=== PATIENT | male | born 1985 | race Hispanic/Latino ===

== ENCOUNTER 2024-02-07 19:32 | Inpatient (IN) | payer OTHER ==
[~2024-02-07] VITALS: Ht 165.1 cm; Wt 58.0 kg
[2024-02-07 20:38] LABS: BASOPHILS # (AUTO) 0.03 K/uL (0.00-0.20); BASOPHILS % (AUTO) 0.2 % (0.0-5.0); HEMATOCRIT 46.1 % (42-54); IMMATURE GRANULOCYTE ABSOLUTE 0.06 K/uL (0-1); LYMPHOCYTES # (AUTO) 1.1 K/uL (1.0-4.8); LYMPHOCYTES % (AUTO) 7.7 % (21.0-51.0); MEAN CORPUSCULAR HEMOGLOBIN 30.1 pg (27.0-33.0); MEAN CORPUSCULAR HGB CONC 34.3 g/dL (32.0-36.0); MEAN CORPUSCULAR VOLUME 87.8 fL (79-99); MONOCYTES # (AUTO) 0.8 K/uL (0.1-1.0); MONOCYTES % (AUTO) 5.8 % (3.0-13.0); NEUTROPHILS # (AUTO) 12.2 K/uL (1.8-7.7); NEUTROPHILS % (AUTO) 85.9 % (40.0-77.0); PLATELET COUNT (AUTO) 384 K/uL (130-400); RED BLOOD CELL COUNT(AUTO) 5.25 MIL/uL (4.50-6.20); RED CELL DISTRIBUTION WIDTH 12.7 % (11.0-15.5); WHITE BLOOD COUNT (AUTO) 14.3 K/uL (4.8-10.8)
[2024-02-07 20:42] LABS: APPEARANCE,URINE CLEAR (CLEAR); BILIRUBIN,URINE NEGATIVE (NEGATIVE); COLOR,URINE YELLOW (YELLOW); GLUCOSE, URINE (UA) NEGATIVE (NEGATIVE); KETONES,URINE 40 mg/dL (NEGATIVE); LEUKOCYTE ESTERASE ,URINE NEGATIVE Leu/uL (NEGATIVE); NITRATE,URINE NEGATIVE (NEGATIVE); OCCULT BLOOD,URINE NEGATIVE (NEGATIVE); PH,URINE 8.5 (5.0-8.0); PROTEIN,URINE 200 mg/dL (NEGATIVE); UROBILINOGEN,URINE 0.2 mg/dL (0.2-1.0)
[2024-02-07 20:47] LABS: ADD UA MICROSCOPIC YES
[2024-02-07 20:54] LABS: CREATININE 0.9 mg/dL (0.5-1.3); POTASSIUM 4.1 mmol/L (3.5-5.1)
[2024-02-07 20:55] LABS: MUCUS,URINE Moderate LPF (None Seen)
[2024-02-07] MEDS: LACTATED RINGERS 1000ML 1,000 ML IV ONE (20:56)
[2024-02-07] MEDS: PANTOPRAZOLE 40 MG/VIAL IVP ONE (20:56)
[2024-02-07] MEDS: ONDANSETRON 4MG INJ IVP ONE (20:56)
[2024-02-07 20:57] LABS: BACTERIA,URINE Few /HPF (None Seen); HYALINE CASTS, URINE 0-1 /LPF (0-1 /LPF); RBC,URINE 0-1 /HPF (0-1); WBC,URINE 0-1 /HPF (0-1)
[2024-02-07 20:58] LABS: ALBUMIN 4.3 g/dL (3.5-5.0); TOTAL PROTEIN, SERUM 8.7 g/dL (6.0-8.3)
[2024-02-07] MEDS ORDERED: IOHEXOL 350 MG/ML 100ML INFUS..BTL IV ONE (21:15)
[2024-02-07] MEDS: ZOSYN 3.375GM +NS 50ML IV ONE (22:32)
[2024-02-07] MEDS: ONDANSETRON 4MG INJ IV PRN (22:45)
[2024-02-07] MEDS: 0.9%NACL 1000ML 1,000 ML IV SCH (22:45)
[2024-02-07] MEDS: MORPHINE 2 MG SYG IV PRN (22:46)
[2024-02-08] VITALS (25 sets, daily range): BP systolic 109–139; BP diastolic 63–96; PULSE 56–71; RESP 13–21; O2SAT 97
[2024-02-08] MEDS: MORPHINE 2 MG SYG IVP ONE (00:14)
[2024-02-08] MEDS: ZOSYN 3.375GM+NS 50ML 50 ML IV SCH (05:03)
[2024-02-08 06:50] LABS: BASOPHILS # (AUTO) 0.06 K/uL (0.00-0.20); BASOPHILS % (AUTO) 0.4 % (0.0-5.0); EOSINOPHILS # (AUTO) 0.01 K/uL (0.00-0.70); EOSINOPHILS % (AUTO) 0.1 % (0.0-8.0); HEMATOCRIT 43.6 % (42-54); LYMPHOCYTES # (AUTO) 2.1 K/uL (1.0-4.8); LYMPHOCYTES % (AUTO) 12.3 % (21.0-51.0); MEAN CORPUSCULAR HEMOGLOBIN 30.8 pg (27.0-33.0); MEAN CORPUSCULAR HGB CONC 33.5 g/dL (32.0-36.0); MONOCYTES # (AUTO) 1.4 K/uL (0.1-1.0); MONOCYTES % (AUTO) 8.4 % (3.0-13.0); NEUTROPHILS # (AUTO) 13.2 K/uL (1.8-7.7); NEUTROPHILS % (AUTO) 78.2 % (40.0-77.0); PLATELET COUNT (AUTO) 348 K/uL (130-400); RED BLOOD CELL COUNT(AUTO) 4.74 MIL/uL (4.50-6.20); RED CELL DISTRIBUTION WIDTH 12.5 % (11.0-15.5); WHITE BLOOD COUNT (AUTO) 16.8 K/uL (4.8-10.8)
[2024-02-08 07:08] LABS: ALBUMIN 3.5 g/dL (3.5-5.0); BILIRUBIN,TOTAL 1.2 mg/dL (0.2-1.0); CREATININE 0.7 mg/dL (0.5-1.3); MAGNESIUM 2.1 mg/dL (1.80-2.40); POTASSIUM 3.9 mmol/L (3.5-5.1); TOTAL PROTEIN, SERUM 7.5 g/dL (6.0-8.3)
[2024-02-08 07:59] LABS: ERYTHROCYTE SEDIMENTATION RATE 17 MM/HR (0-15)
[2024-02-08] MEDS: FAMOTIDINE 20MG VIAL IV SCH (08:42)
[2024-02-08] MEDS: LACTATED RINGERS 1000ML 1,000 ML IV ONE (10:36)
[2024-02-08] MEDS: FAMOTIDINE 20MG VIAL IV ONE (10:40)
[2024-02-08] MEDS: ACETAMINOPHEN 1,000 MG/100 ML VIAL IV ONE (10:40)
[2024-02-08] MEDS ORDERED: LIDOCAINE PF 100MG/5ML (2%) SYRINGE 5ML ONE (10:42)
[2024-02-08] MEDS ORDERED: PROPOFOL 10 MG/ML 20ML VIAL IV ONE (10:42)
[2024-02-08] MEDS ORDERED: FENTANYL CITRATE PF 50 MCG/1 ML 2ML VIAL ONE (10:42)
[2024-02-08] MEDS ORDERED: ROCURONIUM BROMIDE 10MG/1ML 5ML VL ONE (10:42)
[2024-02-08] MEDS ORDERED: MIDAZOLAM HCL 1 MG/ML 2ML VIAL ONE (10:43)
[2024-02-08] MEDS ORDERED: ONDANSETRON 4MG INJ ONE (10:43)
[2024-02-08] MEDS ORDERED: DEXAMETHASONE SOD PHOSPHATE 10MG/ML 1ML VIAL ONE (10:43)
[2024-02-08] MEDS ORDERED: BUPIVACAINE/PF 0.5% 10ML VIAL ONE ×2 (10:45)
[2024-02-08] MEDS: BUPIVACAINE/EPI/PF 0.25% 10ML VIAL IJ ONE (12:08)
[2024-02-08] MEDS ORDERED: GLYCOPYRROLATE 0.2 MG/ML 5 ML VIAL ONE (12:12)
[2024-02-08] MEDS ORDERED: NEOSTIGMINE METHYLSULFATE 1MG/ML IV ONE (12:12)
[2024-02-08] MEDS ORDERED: KETOROLAC 30MG VIAL (30MG/ML) ONE (12:14)
[2024-02-08] MEDS: ONDANSETRON 4MG INJ ONE (13:05)
[2024-02-08] MEDS: SUGAMMADEX SODIUM 200 MG/2 ML VIAL IV ONE (13:06)
[2024-02-09] VITALS: BP 128/74; PULSE 61; RESP 19
[2024-02-09 04:00] VITALS: BP 145/88; PULSE 66; RESP 22
[2024-02-09 04:02] LABS: HEMATOCRIT 43.8 % (42-54); MEAN CORPUSCULAR HEMOGLOBIN 30.7 pg (27.0-33.0); MEAN CORPUSCULAR VOLUME 90.3 fL (79-99); RED BLOOD CELL COUNT(AUTO) 4.85 MIL/uL (4.50-6.20); RED CELL DISTRIBUTION WIDTH 12.7 % (11.0-15.5); WHITE BLOOD COUNT (AUTO) 12.3 K/uL (4.8-10.8)
[2024-02-09 04:19] LABS: POTASSIUM 3.8 mmol/L (3.5-5.1)
[2024-02-09 08:00] VITALS: BP_SYST 124; BP_SYST 161; BP_DIAS 69; BP_DIAS 90; PULSE 62; PULSE 63; RESP 18; RESP 19
[2024-02-09 08:30] VITALS: O2SAT 97
[2024-02-09 12:00] VITALS: BP 145/100; PULSE 78; RESP 19
[2024-02-09] MEDS ORDERED: AMOX1TAB16 PO (13:14)
[2024-02-09 15:00] VITALS: BP 140/89
== END 2024-02-09 16:35 | disposition home or self-care (01) | DRG 399 ==
LOC: EDH 19:32 → EDHIP 19:33 → 3AH 02-08 04:25
PROVIDERS: ADMIT Internal Medicine; ATTEND Internal Medicine
PROC: 0DTJ4ZZ Resection of Appendix, Percutaneous Endoscopic Approach (ICD-10-PCS; principal; 2024-02-08 10:20)
DX: K35.890 Other acute appendicitis without perforation or gangrene (principal)
CPT/HCPCS: 36415; 74177; 80048; 80053; 81001; 83690; 83735; 84145; 84484; 85025; 85027; 85651; C9113; G0378; J1100; J1885; J2001; J2250; J2270; J2405; J2543; J2704; J2710; J3010; J3490; J7030; J7120; Q9967; A4216; A4222; A4223; A4600; A4649; C1769; J0665

== ENCOUNTER 2024-03-03 09:08 | Emergency (ER) | payer OTHER ==
[~2024-03-03] VITALS: Ht 167.6 cm; Wt 57.6 kg
[~2024-03-03 09:08] MED LIST: AMOX1TAB16 PO
[2024-03-03 11:33] VITALS: BP 121/85; PULSE 66; RESP 16; O2SAT 98
== END 2024-03-03 11:34 | disposition home or self-care (01) ==
LOC: EDH 09:08
DX: Z48.02 Encounter for removal of sutures (principal); F41.9 Anxiety disorder, unspecified; Z90.49 Acquired absence of other specified parts of digestive tract; Z98.890 Other specified postprocedural states
CPT/HCPCS: 99281